=== PATIENT | female | born 1955 | race Caucasian/White ===

== ENCOUNTER → 2017-01-26 | Outpatient (CLI) | payer BC, OTHER ==
--- NOTE | 2017-01-29 13:37 | Diagnostic Imaging Report ---
EXAMINATION: Bilateral screening mammogram with a Computer Aided Detection (CAD) system. INDICATION: Screening. PERSONAL HISTORY: No current complaints stated on the questionnaire. COMPARISON: 01/22/2016. FINDINGS: There is a focal asymmetry in the lateral aspect of the left breast. This appears more prominent compared to the prior exam and is measuring about 1 cm in size. Focal compression views and an ultrasound evaluation are recommended. The background heterogeneously dense parenchyma otherwise in both breasts appears unchanged. IMPRESSION: Focal compression views and an ultrasound evaluation for a lateral left breast focal asymmetry are recommended. ACR BI-RADS Category 0: Incomplete. (Needs additional imaging evaluation). Result letter will be mailed to the patient. Note: At least 10% of breast cancer is not imaged by mammography. Dictated by: Dictated on workstation # [id number]
== END ==
LOC: RAD 09:53
PROVIDERS: ATTEND Internal Medicine
DX: Z12.31 Encounter for screening mammogram for malignant neoplasm of breast (principal)
CPT/HCPCS: 77067

== ENCOUNTER → 2017-02-13 | Outpatient (CLI) | payer OTHER ==
--- NOTE | 2017-02-13 16:09 | Diagnostic Imaging Report ---
EXAMINATION: Left diagnostic mammogram with a Computer Aided Detection (CAD) system. INDICATION: Focal asymmetry in the outer aspect of the left breast. FINDINGS: Focal compression views demonstrate a persistent indeterminate focal asymmetry in the outer aspect of the left breast. It is, however, less prominent on the true lateral projection. IMPRESSION: Indeterminate persistent density along the site of focal asymmetry in the lateral aspect of the left breast. An ultrasound evaluation is pending. ACR BI-RADS Category 0: Incomplete. (Needs additional imaging evaluation). Result letter will be mailed to the patient. Note: At least 10% of breast cancer is not imaged by mammography. Dictated by: Dictated on workstation # [id number]
--- NOTE | 2017-02-13 16:26 | Diagnostic Imaging Report ---
EXAMINATION: Left breast ultrasound. INDICATION: Outer left breast asymmetry. FINDINGS: At the 6 o'clock zone 4 cm from the nipple, there is an intramammary lymph node seen with a maximum dimension of 7 mm and smooth margins with preserved fatty hilum, compatible with benign etiology. This does not correspond with the location of the focal asymmetry seen on mammography. No other lesion is seen in the outer aspect of the left breast or retroareolar region. IMPRESSION: Incidental note of an intramammary benign-appearing lymph node at the 6 o'clock zone. No definite abnormality to explain the focal asymmetry seen in the outer aspect of the left breast on mammography which could be summation artifact of parenchyma. A 6 month left breast mammogram is recommended to ensure stability or resolution. ACR BI-RADS Category 3: Probably benign findings. Result letter will be mailed to the patient. Note: At least 10% of breast cancer is not imaged by mammography. Dictated by: Dictated on workstation # [id number]
== END ==
LOC: RAD 08:13
PROVIDERS: ATTEND Internal Medicine
DX: N64.89 Other specified disorders of breast (principal)
CPT/HCPCS: 76642

== ENCOUNTER → 2017-08-31 | Outpatient (CLI) | payer OTHER ==
--- NOTE | 2017-08-31 13:03 | Diagnostic Imaging Report ---
EXAMINATION: Left breast diagnostic mammogram with tomography evaluation. The current study was also evaluated with a Computer Aided Detection (CAD) system. COMPARISON: 01/24/2017. INDICATION: Asymmetry along the upper aspect of the left MLO view. FINDINGS: The area of asymmetry is again seen with no adverse development and no definite underlying lesion is identified. No definite mass, architectural distortion, or suspicious cluster of calcifications. IMPRESSION: Persistent nonspecific asymmetry with no definite underlying lesion in the upper aspect of the left breast is favored to be related to summation artifact from the background dense parenchyma. A followup study when the patient is due for her bilateral mammogram in January 2018 is recommended. ACR BI-RADS Category 3: Probably benign findings. Result letter will be mailed to the patient. Note: At least 10% of breast cancer is not imaged by mammography. Dictated by: Dictated on workstation # [id number]
== END ==
LOC: RAD 12:16
PROVIDERS: ATTEND Internal Medicine
DX: N64.89 Other specified disorders of breast (principal)

== ENCOUNTER 2018-01-13 13:07 | Emergency (ER) | payer OTHER ==
[~2018-01-13] VITALS: Ht 162.6 cm; Wt 81.6 kg
--- OUTSIDE RECORDS SUMMARY | 2018-01-13 13:12 | XMS REPORT | Continuity of Care Document ---
Author Author [facility] Organization [facility] Address Unknown Phone Unavailable Allergies There is no data. Medications There is no data. Problems Date Dx Coded Attending Type Code Diagnosis Diagnosed By 01/22/2015 CONCHA JARQUIN MD Ot V76.12 01/22/2015 CONCHA JARQUIN MD Ot V76.12 02/09/2015 CONCHA JARQUIN MD Ot V76.12 01/22/2016 Ot V76.12 OTH SCREEN MAMMO-MALIGN NEOPLASM OF JAN 01/22/2016 CONCHA JARQUIN MD Ot V76.12 OTH SCREEN MAMMO-MALIGN NEOPLASM OF JAN 01/22/2016 CONCHA JARQUIN MD Ot V76.12 OTH SCREEN MAMMO-MALIGN NEOPLASM OF JAN 01/23/2016 CONCHA JARQUIN MD Ot Z12.31 ENCNTR SCREEN MAMMOGRAM FOR MALIGNANT NE 01/24/2016 CONCHA JARQUIN MD Ot Z12.31 ENCNTR SCREEN MAMMOGRAM FOR MALIGNANT NE 02/14/2016 CONCHA JARQUIN MD Ot Z12.31 ENCNTR SCREEN MAMMOGRAM FOR MALIGNANT NE 01/21/2017 Ot V76.12 OTH SCREEN MAMMO-MALIGN NEOPLASM OF JAN 01/21/2017 CONCHA JARQUIN MD Ot V76.12 OTH SCREEN MAMMO-MALIGN NEOPLASM OF JAN 01/21/2017 CONCHA JARQUIN MD Ot V76.12 OTH SCREEN MAMMO-MALIGN NEOPLASM OF JAN 01/21/2017 CONCHA JARQUIN MD Ot Z12.31 ENCNTR SCREEN MAMMOGRAM FOR MALIGNANT NE 02/19/2017 CONCHA JARQUIN MD Ot N64.89 OTHER SPECIFIED DISORDERS OF BREAST 02/20/2017 CONCHA JARQUIN MD Ot N64.89 OTHER SPECIFIED DISORDERS OF BREAST 02/20/2017 CONCHA JARQUIN MD Ot N64.89 OTHER SPECIFIED DISORDERS OF BREAST 09/01/2017 CONCHA JARQUIN MD Ot N64.89 OTHER SPECIFIED DISORDERS OF BREAST 09/03/2017 CONCHA JARQUIN MD Ot N64.89 OTHER SPECIFIED DISORDERS OF BREAST Procedures There is no data. Results There is no data. Encounters ACCT No. Visit Date/Time Discharge Status Pt. Type Provider Facility Loc./Unit Complaint [id number] 08/31/2017 12:16:00 08/31/2017 23:59:59 CLS Outpatient CONCHA JARQUIN MD [facility] RAD 6 MO F/U [id number] 02/13/2017 08:13:00 02/13/2017 23:59:59 CLS Outpatient CONCHA JARQUIN MD [facility] RAD ABNORMAL MAMMO [id number] 01/26/2017 09:53:00 01/26/2017 23:59:59 CLS Outpatient CONCHA JARQUIN MD [facility] RAD Z12.31 [id number] 01/22/2016 08:19:00 01/22/2016 23:59:59 CLS Outpatient CONCHA JARQUIN MD [facility] RAD SCREENING [id number] 01/16/2015 10:21:00 01/16/2015 23:59:59 CLS Outpatient CONCHA JARQUIN MD [facility] RAD SCREENING [id number] 01/05/2014 10:17:00 01/05/2014 23:59:59 CLS Outpatient CONCHA JARQUIN MD [facility] RAD SCREENING [id number] 01/13/2018 13:09:00 ACT Emergency PAU ISBELL APRN [facility] ER FINGER LAC--WORK RELATED [id number] 12/31/2012 10:19:00 Document Registration
--- NOTE | 2018-01-13 13:23 | ED Upper Extremity ---
General Chief Complaint: Laceration Stated Complaint: FINGER LAC--WORK RELATED Nursing Triage Note: c/o laceration to proximal right 5th finger. Claims she cut finger on a edge of a metal can. Nursing Sepsis Screen: No Definite Risk Source: patient Exam Limitations: no limitations History of Present Illness Date Seen by Provider: Jan 13, 2018 Time Seen by Provider: 13:22 Initial Comments To ER accompanied by coworker/supervisor nutritional yeast with reports of a laceration to the dorsal aspect of the right fifth finger. 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 She was opening a can of ketchup when her hand slipped and the lid of the can cut her finger. Tetanus is not up-to-date. She has her own workmans comp paperwork with her from [employer] [facility]. Onset: just prior to arrival Severity: moderate Pain/Injury Location: right 5th finger Allergies and Home Medications Patient Home Medication List Home Medication List Reviewed: Yes Constitutional: see HPI EENTM: see HPI Respiratory: no symptoms reported Cardiovascular: no symptoms reported Genitourinary: no symptoms reported Musculoskeletal: no symptoms reported Skin: see HPI Psychiatric/Neurological: No Symptoms Reported Past Histjvq-Bhtoet-Luckgi Hx Patient Social History Recent Foreign Travel: No Contact w/Someone Who Travel: No Recent Infectious Disease Expo: No Physical Exam Vital Signs Vital Signs - First Documented 01/13/18 13:16 Temp 98.1 Pulse 76 B/P (MAP) 140/64 (89) Pulse Ox 98 O2 Delivery Room Air Capillary Refill : Less Than 3 Seconds General Appearance: WD/WN, no apparent distress HEENT: PERRL/EOMI, normal ENT inspection Neck: non-tender, full range of motion Respiratory: no respiratory distress, no accessory muscle use Gastrointestinal: normal bowel sounds, non tender Shoulder: normal inspection, non-tender Elbow/Forearm: normal inspection, non-tender Wrist: Yes normal inspection Hand: Right, laceration (1 cm laceration skin flap to the dorsal aspect of the proximal phalanx right fifth finger. No tendon involvement. This is a superficial skin flap.) Neurologic/Psychiatric: alert, normal mood/affect, oriented x 3 Skin: normal color, warm/dry Procedures/Interventions Wound Location: Upper Extremities Wound Length (cm): 1 Wound's Depth, Shape: superficial Other Closure Supply: Wound Adhesive Progress/Results/Core Measures Vital Signs/I&O 01/13/18 13:16 Temp 98.1 Pulse 76 B/P (MAP) 140/64 (89) Pulse Ox 98 O2 Delivery Room Air Blood Pressure Mean: 89 Departure Impression Primary Impression: Finger laceration Disposition: 01 HOME, SELF-CARE Condition: Stable Departure-Patient Inst. Decision time for Depature: 13:26 Referrals: CONCHA JARQUIN MD (PCP/Family) Primary Care Physician Patient Instructions: Laceration Repair With Glue (DC) Add. Discharge Instructions: . Allow the glue to fall off on its own in about 3-5 days. Keep covered with bandaid for 4 days. All discharge instructions reviewed with patient and/or family. Voiced understanding. PAU ISBELL GERMINATION TESTING MANAGER Jan 13, 2018 13:23
[2018-01-13] MEDS ORDERED: PARO20TA5 (13:24)
[2018-01-13] MEDS ORDERED: ATEN100T (13:24)
[2018-01-13] MEDS ORDERED: VALS1TAB78 (13:24)
[2018-01-13] MEDS ORDERED: TETANUS,DIPTH,PERTUSS P/F (BOOSTRIX) 0.5 ML VIAL IM ONE (13:30)
[2018-01-13 13:35] VITALS: BP 138/64
== END 2018-01-13 13:35 | disposition home or self-care (01) ==
LOC: EDUNIT# 13:07 → ER 13:09
DX: S61.216A Laceration without foreign body of right little finger without damage to nail, initial encounter (principal); Z23 Encounter for immunization; W26.8XXA Contact with other sharp object(s), not elsewhere classified, initial encounter
CPT/HCPCS: 12011; 90471; 90715

== ENCOUNTER 2018-07-23 05:42 | Outpatient (CLI) | payer OTHER ==
[~2018-07-23] VITALS: Ht 162.6 cm; Wt 81.6 kg
[~2018-07-23 05:42] MED LIST: ATEN100T PO; PARO20TA5; VALS1TAB78 PO
[2018-07-23] MEDS ORDERED: PARO10TA3 PO (12:20)
[2018-07-23] MEDS ORDERED: ASPI-586 PO (12:20)
== END 2018-07-23 12:23 | disposition home or self-care (01) ==
LOC: PREOP 05:42
PROVIDERS: ATTEND Surgery
DX: Z01.818 Encounter for other preprocedural examination (principal)

== ENCOUNTER → 2019-01-28 | Outpatient (CLI) | payer OTHER ==
[~2019-01-28] MED LIST changes: +ASPI-586 PO; +PARO10TA3 PO
--- NOTE | 2019-01-28 16:17 | Diagnostic Imaging Report ---
INDICATION: Routine screening. COMPARISON: Prior mammogram from 01/26/2017 and 01/22/2016. EXAMINATION: 2D and 3D bilateral screening mammography was performed CAD. The current study was also evaluated with a Computer Aided Detection (CAD) system. FINDINGS: Both breasts remain heterogeneously dense, limiting the sensitivity of mammography. The parenchymal pattern is stable. No mass or malignant appearing microcalcifications are seen. Axillae are unremarkable. IMPRESSION: No mammographic features suspicious for malignancy are identified. ACR BI-RADS Category 1: Negative. Result letter will be mailed to the patient. Note: At least 10% of breast cancer is not imaged by mammography. Dictated on workstation # [id number]
== END ==
LOC: RAD 09:41
PROVIDERS: ATTEND Internal Medicine
DX: Z12.31 Encounter for screening mammogram for malignant neoplasm of breast (principal)
CPT/HCPCS: 77067

== ENCOUNTER → 2020-03-28 | Outpatient (CLI) | payer BC, OTHER ==
[~2020-03-28] MED LIST changes: -VALS1TAB78 PO; +VALS1TAB79 PO
--- NOTE | 2020-03-28 11:37 | Diagnostic Imaging Report ---
INDICATION: Routine screening. Comparison is made with prior mammogram 01/28/2019 and 01/26/2017. 2-D and 3-D bilateral screening mammography was performed with CAD. Both breasts remain heterogeneously dense, limiting the sensitivity of mammography. Circumscribed nodule in the inferior far posterior left breast is noted and has been seen on prior mammograms. No spiculated mass or malignant appearing microcalcifications are seen. Axillae are unremarkable. IMPRESSION: BI-RADS Category 2 No mammographic features suspicious for malignancy are identified. ACR BI-RADS Category 2: Benign findings. Result letter will be mailed to the patient. Note: At least 10% of breast cancer is not imaged by mammography. Dictated by: Dictated on workstation # [id number]
== END ==
LOC: RAD 09:34
PROVIDERS: ATTEND Internal Medicine
DX: Z12.31 Encounter for screening mammogram for malignant neoplasm of breast (principal)
CPT/HCPCS: 77063; 77067

== ENCOUNTER 2020-12-06 05:37 | Outpatient (CLI) | payer OTHER ==
[~2020-12-06] VITALS: Ht 160 cm; Wt 81.4 kg
[2020-12-06] MEDS ORDERED: PARO20TA5 PO (14:56)
[2020-12-06] MEDS ORDERED: ASPI-999 PO (14:56)
== END 2020-12-06 15:02 | disposition home or self-care (01) ==
LOC: PREOP 05:37 → EDSTATUS 11:00 → PREOP 15:02
PROVIDERS: ATTEND Surgery
DX: Z01.818 Encounter for other preprocedural examination (principal)

== ENCOUNTER 2020-12-13 06:47 | Day surgery (SDC) | payer OTHER ==
--- NOTE | 2020-11-28 18:27 | HISTORY AND PHYSICAL ---
DATE OF SERVICE: DATE OF ADMISSION: 12/13/2020. ATTENDING PRIMARY CARE PHYSICIAN: Faizan Ramos MD HISTORY OF PRESENT ILLNESS: The patient is a 65-year-old female who we have seen before. 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 The recommendation at that time was to proceed with a wide local excision with 2 cm margins as well as possible full thickness skin graft as well as a sentinel node biopsy for staging purposes of the inguinal region. She is otherwise doing well, does not have any shortness of breath or difficulty in breathing and has not experienced any recent inadvertent weight loss. PAST MEDICAL HISTORY: Hypertension, atrial fibrillation. MEDICATIONS: Valsartan/hydrochlorothiazide 320/12.5 mg daily, atenolol 100 mg daily, paroxetine 20 mg daily, aspirin 81 mg daily. SOCIAL HISTORY: Negative smoke, negative alcohol. FAMILY HISTORY: Mother, leukemia. Brother, myocardial infarction, age 48. VITAL SIGNS: Blood pressure 159/80, current weight 179.4 pounds at 5 feet 3 inches. REVIEW OF SYSTEMS: Well-nourished female, in no acute distress. She is not experiencing any shortness of breath or difficulty breathing. No chest pain, palpitations, diaphoresis. No nausea, vomiting. No diarrhea or constipation. No fever, chills. No recent inadvertent weight loss. PHYSICAL EXAMINATION: EXTREMITIES: No lower extremity edema. Negative Homans sign. HEENT: No scleral icterus. NECK: No cervical lymphadenopathy. ABDOMEN: Soft, nontender, nondistended. SKIN: There is a previous healed scar from the previous excision site of the anterior mid left thigh. There is no inguinal lymphadenopathy. ASSESSMENT AND PLAN: A 65-year-old female with a superficial spreading melanoma of the left anterior thigh 2.5 mm in depth. The recommendation is to proceed with a wide 2 cm excisional margin as well as a sentinel node for staging purposes, which we will schedule her for. Job ID: [id number] DocumentID: [id number] Dictated Date: 11/27/2020 16:08:06 E M Assembler Date: 11/27/2020 16:20:52 Dictated By: KWESI IVAN MD
[~2020-12-13] VITALS: Ht 160 cm; Wt 81.4 kg
[2020-12-13] VITALS (11 sets, daily range): BP systolic 117–153; BP diastolic 42–89
[~2020-12-13 06:47] MED LIST changes: +ASPI-999 PO; +PARO20TA5 PO
[2020-12-13] MEDS ORDERED: ceFAZolin 2 GM IV Premixed 50 ML IV ONE (07:00)
[2020-12-13] MEDS ORDERED: proPOfol 200 MG/20 ML (DIPRIVAN) VIAL IV ONE (08:07)
[2020-12-13] MEDS ORDERED: LIDOCAINE PF 2% 5 ML (XYLOCAINE) VIAL ONE (08:07)
[2020-12-13] MEDS ORDERED: ONDANSETRON 4 MG/2 ML (SDV) Z0FRAN ONE (08:07)
[2020-12-13] MEDS ORDERED: MIDAZOLAM 2 MG/2 ML (VERSED) VIAL ONE (08:07)
[2020-12-13] MEDS ORDERED: fentaNYL INJ 100 MCG/2 ML AMP ONE (08:08)
[2020-12-13] MEDS ORDERED: METHYLENE BLUE 0.5% (PROVAYBLUE) 50 mg/10 ml vial IV ONE (08:16)
[2020-12-13] MEDS ORDERED: LIDOCAINE/EPI 1%-1:100,000 (XYLOCAINE) 10 ML ONE (08:16)
--- NOTE | 2020-12-13 08:29 | Diagnostic Imaging Report ---
Lymphoscintigraphy. Indication: Melanoma left thigh. This exam was performed for sentinel node identification. Following aseptic preparation of the skin, 1.03 mCi of filtered sulfur colloid was injected in 4 divided doses about the perimeter of the left thigh melanoma excision site. The imaging of this area did show that there was an area of uptake in the region of the left groin. The skin over the area of uptake was marked. Impression: There has been successful lymphoscintigraphy procedure. Dictated by: Dictated on workstation # [id number]
[2020-12-13] MEDS: LACTATED RINGERS 1,000 ML IV PRN ×2 (08:35→12:07)
--- NOTE | 2020-12-13 09:12 | Discharge Inst-Surgical ---
BRAYDEN ELIAS [facility] Dec 13, 2020 09:12
[2020-12-13] MEDS ORDERED: HYDR-3817 PO (09:13)
[2020-12-13] MEDS ORDERED: morphine INJ 10 MG/ML 1ML (SYR OR VIAL) IVP PRN (09:15)
[2020-12-13] MEDS ORDERED: ONDANSETRON 4 MG/2 ML (SDV) Z0FRAN IVP PRN ×2 (09:15→12:00)
[2020-12-13] MEDS ORDERED: ACETAMINOPHEN 325 MG TABLET PO PRN (09:15)
--- NOTE | 2020-12-13 09:23 | Progress Note-Pre Operative ---
Pre-Operative Progress Note H&P Reviewed The H&P was reviewed, patient examined and no changes noted. Time Seen by Provider: 09:00 Date H&P Reviewed: Dec 13, 2020 Time H&P Reviewed: 09:10 Pre-Operative Diagnosis: excision melanoma left thigh BRAYDEN ELIAS Dec 13, 2020 09:23
[2020-12-13] MEDS ORDERED: HYDROmorphone 2 MG/ML VIAL (DILAUDID) IV ONE (12:00)
[2020-12-13] MEDS ORDERED: morphine INJ 10 MG/ML 1ML (SYR OR VIAL) IVP ONE (12:00)
[2020-12-13] MEDS ORDERED: SEVOFLURANE (ULTANE) 15 ML INHAL SOLN ONE (12:19)
--- NOTE | 2020-12-13 12:21 | Progress Note-Post Operative ---
Post-Operative Progess Note Surgeon (s)/Behavioral Health Tech (s) Surgeon KWESI IVAN MD Behavioral Health Tech: kristie tapia SVP CHIEF MARKETING OFFICER Pre-Operative Diagnosis melanoma left thigh Post-Operative Diagnosis same Procedure & Operative Findings Date of Procedure 12/13/20 Procedure Performed/Findings wide excision melanoma left thigh 7x5cm, left inguinal sentinel node biopsy, subdermal injection, full thickness skin graft from left groin. Anesthesia Type general LMA with local Estimated Blood Loss Estimated blood loss (mL): minimal Specimens/Packing Specimens Removed left inguinal sentinel node, left anterior thigh melanoma. KWESI IVAN MD Dec 13, 2020 12:21
--- NOTE | 2020-12-13 18:01 | OPERATIVE REPORT ---
DATE OF SERVICE: 12/13/2020 ATTENDING PRIMARY CARE PHYSICIAN: Faizan Ramos MD. PREOPERATIVE DIAGNOSIS: Left anterior thigh melanoma with a depth of 2.5 mm. POSTOPERATIVE DIAGNOSIS: Left anterior thigh melanoma with a depth of 2.5 mm. PROCEDURES PERFORMED: Wide excision melanoma, left anterior thigh 7 x 5 cm, subdermal injection, sentinel lymph node biopsy from the left inguinal region and full thickness skin graft taken from the left groin. SURGEON: Kwesi Ivan MD. SENIOR SUPPORT ENGINEER: Bethany Azul APRN. ANESTHESIA: General laryngeal mask airway with local. ESTIMATED BLOOD LOSS: Minimal. FINDINGS: Story node count 1683 with a background 12 consistent with sentinel node. DISPOSITION: The patient tolerated the procedure well. INDICATIONS FOR PROCEDURE: The patient is a 65-year-old female, who we had seen before in the past. 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 The recommendation was to proceed with a wide local excision with 2 cm margins as well as a full thickness skin graft to the defect. Also, a sentinel node biopsy for staging purposes of the lymph node basin of the inguinal region. She is otherwise doing well, does not report any shortness of breath or difficulty in breathing as well as no recent inadvertent weight loss. DESCRIPTION OF PROCEDURE: The patient was brought to the operating room and laid supine on the table. After adequate IV pain and sedative medications and general laryngeal mask airway intubation, the left lower extremity and lower abdomen were prepped and draped in a standard surgical fashion. Before this, we proceeded with subdermal injection of methylene blue concentrically around the previous excision site of the melanoma of the anterior left thigh. We first proceeded with excision of the sentinel node using the nuclear counter. Also, before the procedure, the patient underwent lymphoscintigraphy by nuclear medicine. An area was measured out along what excision margins were going to be at 7 x 5 cm placed along the left groin. Skin incision was made using a 15 blade and we then proceeded with dissection of the subcutaneous tissue as well as the fascia. The sentinel node was then identified by the methylene blue dye as well as the nuclear counter at 1683 and after excision of the sentinel node using electrocautery, the background was 12. This was consistent with a sentinel node. This was sent to pathology for permanent. The skin graft was then excised along our markings using a 15 blade. Good hemostasis was observed. Superior and inferior skin flaps were then created using electrocautery and then the subcutaneous tissue was then reapproximated using 3-0 Vicryl interrupted sutures. The subcutaneous layer was then placed using a 3-0 Vicryl suture and the skin was closed using 4-0 Monocryl running subcuticular suture. Wound was then cleaned and covered with Dermabond. We then proceeded with excision of the melanoma site, measured out to be 7 x 5 cm in size using a 15 blade to the level of the subcutaneous fat. Good hemostasis was achieved using electrocautery. We then proceeded to place a skin graft using multiple 4-0 Prolene interrupted sutures. Good hemostasis was observed. A nonstick dressing was then placed onto the graft followed by 4 x 4 gauze followed by Kerlix wrap followed by Coban. The patient tolerated the procedure well. We will await the biopsy results and we will instruct her to keep both incision sites clean and dry and to apply gauze dressing on a daily basis starting two days from now. Job ID: [id number] DocumentID: [id number] Dictated Date: 12/13/2020 12:34:41 News Operations Manager Date: 12/13/2020 18:00:39 Dictated By: KWESI IVAN MD [facility]
== END 2020-12-13 14:30 ==
LOC: SDC 06:47
PROVIDERS: ATTEND Surgery
DX: C43.72 Malignant melanoma of left lower limb, including hip (principal); I10 Essential (primary) hypertension; I48.91 Unspecified atrial fibrillation; K21.9 Gastro-esophageal reflux disease without esophagitis; F41.9 Anxiety disorder, unspecified; Z79.899 Other long term (current) drug therapy; Z79.82 Long term (current) use of aspirin
CPT/HCPCS: 11606; 15220; 38505; 78195; 87081; 88305; 88307; 88344; A9541

== ENCOUNTER → 2021-04-11 | Outpatient (CLI) | payer OTHER ==
[~2021-04-11] MED LIST changes: +HYDR-3817 PO
[2021-04-11 10:42] LABS: ABSOLUTE RETIC # 104 10e9/uL (24-90); BASOPHILS % (AUTO) 1 % (0-10); EOSINOPHILS # (AUTO) 0.1 10^3/uL (0.0-0.3); EOSINOPHILS % (AUTO) 2 % (0-10); HEMATOCRIT 38 % (35-52); HEMOGLOBIN 12.2 g/dL (11.5-16.0); LYMPHOCYTES % (AUTO) 31 % (12-44); MEAN CORPUSCULAR HEMOGLOBIN 30 pg (25-34); MEAN CORPUSCULAR HGB CONC 32 g/dL (32-36); MEAN CORPUSCULAR VOLUME 93 fL (80-99); MEAN PLATELET VOLUME 12.9 fL (9.0-12.2); MONOCYTES # (AUTO) 0.7 10^3/uL (0.0-1.0); MONOCYTES % (AUTO) 11 % (0-12); NEUTROPHILS # (AUTO) 3.6 10^3/uL (1.8-7.8); NEUTROPHILS % (AUTO) 56 % (42-75); PLATELET COUNT 247 10^3/uL (130-400); RETICULOCYTE % 2.55 % (0.50-2.40); WHITE BLOOD COUNT 6.5 10^3/uL (4.3-11.0)
[2021-04-11 11:19] LABS: BAND NEUTROPHILS 0 %; BASOPHILS % (MANUAL) 1 %; EOSINOPHILS % (MANUAL) 3 %; LYMPHOCYTES % (MANUAL) 19 %; MONOCYTES % (MANUAL) 9 %; NEUTROPHILS % (MANUAL) 68 %; RBC MORPH NORMAL
--- NOTE | 2021-04-12 10:15 | Diagnostic Imaging Report ---
Indication: Digital screening with CAD. Compared: 03/2020, 01/2019 and 01/2017. Findings: There are scattered fibroglandular densities in the breast with no mass, spiculated lesion, architectural distortion, suspicious calcifications or adverse interval changes. Impression: Stable negative mammogram BI-RADS Category 1 ACR BI-RADS Category 1: Negative. Result letter will be mailed to the patient. Note: At least 10% of breast cancer is not imaged by mammography. Dictated by: Dictated on workstation # [id number]
== END ==
LOC: RAD 10:14
PROVIDERS: ATTEND Internal Medicine
DX: Z12.31 Encounter for screening mammogram for malignant neoplasm of breast (principal)
CPT/HCPCS: 36415; 77063; 77067; 85007; 85027; 85045; 85055

== ENCOUNTER → 2022-05-05 | Outpatient (CLI) | payer OTHER ==
--- NOTE | 2022-05-05 13:19 | Diagnostic Imaging Report ---
INDICATION: Routine screening. COMPARISON: 04/11/2021 and 03/28/2020. TECHNIQUE: 2D and 3D bilateral screening mammography was performed with CAD. FINDINGS: Scattered fibroglandular densities are identified bilaterally. No mass or malignant-appearing microcalcifications are seen. The axillae are unremarkable. IMPRESSION: No mammographic features suspicious for malignancy are identified. ACR BI-RADS Category 1: Negative. Result letter will be mailed to the patient. Note: At least 10% of breast cancer is not imaged by mammography. Dictated by: Dictated on workstation # [id number]
== END ==
LOC: RAD 10:00
PROVIDERS: ATTEND Internal Medicine
DX: Z12.31 Encounter for screening mammogram for malignant neoplasm of breast (principal)
CPT/HCPCS: 77063; 77067

== ENCOUNTER → 2022-06-25 | Outpatient (CLI) | payer MEDICARE, OTHER | LOC: CARD 09:18 | PROVIDERS: ATTEND Internal Medicine Cardiovascular Disease | DX: I11.9 Hypertensive heart disease without heart failure (principal); I25.10 Atherosclerotic heart disease of native coronary artery without angina pectoris | CPT/HCPCS: 93306 ==

== ENCOUNTER → 2022-07-16 | Outpatient (CLI) | payer MEDICARE, OTHER ==
[~2022-07-16] MED LIST changes: +CATHETER FLUSH 10 ML SYR IVP PRN
[2022-07-16 10:49] VITALS: BP 178/108
--- NOTE | 2022-07-16 10:49 | Cardiology Stress Test Report ---
Stress Test Report Date of Procedure/Referring: Date of Procedure: Jul 16, 2022 PCP Concha Jarquin MD Admitting Physician Admitting Physician: Attending Physician: Av Patel MD Indications: HTN Baseline Heart Rate: 80 Baseline Blood Pressure: Blood Pressure Systolic: 178 Blood Pressure Diastolic: 108 Baseline EKG: Baseline EKG: NSR Summary: After explaining the procedure and details to the patient, she signed the consent and was brought to the stress nuclear laboratory. Patient exercised on standard Aaron protocol, EKG, heart rate and blood pressure were monitored continuously, resting and stress doses of radio tracer were injected, imaging was acquired and reviewed in the short axis, horizontal long axis and vertical long axis views Patient was unable to exercise beyond 1 minute on standard Aaron protocol, it was noted that she reached her target heart rate with peak heart rate 141, 90% of maximal expected heart rate. After stopping the treadmill patient was injected with a stress dose then she started walking again at the slow rate. No EKG changes were noted. The images were acquired and reviewed. TID: 1.09 SSS: 3 SDS: 3 EF: 84 Conclusion: 1. Poor exercise tolerance for a total of 1 minute on standard Aaron protocol, 2.3 METS achieving 90% of maximum expected heart rate 2. Baseline hypertension with severe hypertensive response to exercise with peak blood pressure 213/89 return to baseline during recovery 3. Nondiagnostic EKG changes with exercise return to baseline during recovery 4. No ischemia or infarction noted on SPECT images 5. Normal left ventricular size, ejection fraction 84% Copy Copies To 1: CONCHA JARQUIN MD, BASHAR J MD Jul 16, 2022 10:49
== END ==
LOC: CARD 07:51
PROVIDERS: ATTEND Internal Medicine Cardiovascular Disease
DX: I10 Essential (primary) hypertension (principal); I25.10 Atherosclerotic heart disease of native coronary artery without angina pectoris
CPT/HCPCS: 78452; 93017; A9502

== ENCOUNTER → 2023-05-27 | Outpatient (CLI) | payer MEDICARE, OTHER ==
[~2023-05-27] MED LIST changes: -CATHETER FLUSH 10 ML SYR IVP PRN
--- NOTE | 2023-05-27 11:09 | Diagnostic Imaging Report ---
INDICATION: Routine screening. COMPARISON: 05/05/2022 and 04/11/2021. TECHNIQUE: 2D and 3D bilateral screening mammography was performed with CAD. FINDINGS: Scattered fibroglandular densities are identified bilaterally. A spiculated density has developed in the upper and outer aspect of the left breast. Additional views would be recommended. The right breast is unremarkable. No malignant-appearing microcalcifications are identified. The axillae are unremarkable. IMPRESSION: Spiculated density in the upper outer left breast. Further evaluation with diagnostic mammogram and ultrasound would be recommended. ACR BI-RADS Category 0: Incomplete. (Needs additional imaging evaluation). Result letter will be mailed to the patient. Note: At least 10% of breast cancer is not imaged by mammography. Dictated by: Dictated on workstation # [id number]
== END ==
LOC: RAD 09:50
PROVIDERS: ATTEND Internal Medicine
DX: Z12.31 Encounter for screening mammogram for malignant neoplasm of breast (principal); N63.21 Unspecified lump in the left breast, upper outer quadrant
CPT/HCPCS: 77063; 77067

== ENCOUNTER → 2023-06-10 | Outpatient (CLI) | payer MEDICARE, OTHER ==
--- NOTE | 2023-06-10 13:42 | Diagnostic Imaging Report ---
Indication: Left breast density. Study is performed for further evaluation. Correlation is made with diagnostic mammogram earlier the same day and screening mammogram from 05/27/2023. Sonographic interrogation of the upper outer left breast was performed. There is a irregular hypoechoic mass at the 2:00 location, 5-6 cm from the nipple measuring 10 x 8 x 6 mm. This has ill-defined margins. This likely accounts for the mammographic density. This does show some vascularity along the margins. No other masses are seen. There is posterior acoustic shadowing. IMPRESSION: BI-RADS Category 4 Irregular mass 2:00 location left breast corresponding to the mammographic density. This is concerning for breast malignancy. Tissue sampling is recommended. This would be amenable to ultrasound-guided core biopsy. ACR BI-RADS Category 4: Suspicious abnormality. Dictated by: Dictated on workstation # [id number]
--- NOTE | 2023-06-10 13:59 | Diagnostic Imaging Report ---
Indication: Left breast density. Patient presents for additional views. Correlation is made with screening study from 05/27/2023. Unilateral left 2-D and 3-D diagnostic mammography was performed. This includes spot compression CC, exaggerated CC, spot compression ML as well as conventional 90 degrees lateral views. CAD. The current study was also evaluated with a Computer Aided Detection (CAD) system. There is a persistent spiculated density in the upper outer left breast approximately 7 to 8 cm from the nipple, concerning for a breast malignancy. No malignant-appearing microcalcifications are seen. IMPRESSION: BI-RADS Category 0 Persistent spiculated density upper outer left breast, as described. Further evaluation with ultrasound is recommended and will be performed today. ACR BI-RADS Category 0: Incomplete. (Needs additional imaging evaluation). Result letter will be mailed to the patient. Note: At least 10% of breast cancer is not imaged by mammography. Dictated by: Dictated on workstation # [id number]
== END ==
LOC: RAD 12:19
PROVIDERS: ATTEND Internal Medicine
DX: N63.21 Unspecified lump in the left breast, upper outer quadrant (principal)
CPT/HCPCS: 76642; 77065; G0279

== ENCOUNTER 2023-07-09 05:33 | Outpatient (CLI) | payer MEDICARE, OTHER ==
[~2023-07-09] VITALS: Ht 160 cm; Wt 88.6 kg
[2023-07-09] MEDS ORDERED: ATOR10TA66 PO (10:10)
== END 2023-07-09 10:34 | disposition home or self-care (01) ==
LOC: PREOP 05:33
PROVIDERS: ATTEND Surgery
DX: Z01.818 Encounter for other preprocedural examination (principal)

== ENCOUNTER → 2023-07-23 | Outpatient (CLI) | payer MEDICARE, OTHER ==
[2023-07-23] VITALS (11 sets, daily range): BP systolic 129–161; BP diastolic 52–88
[~2023-07-23] VITALS: Ht 160 cm; Wt 88.6 kg
[~2023-07-23] MED LIST changes: +ACETAMINOPHEN 325 MG TABLET PO PRN; +ATOR10TA66 PO; +LACTATED RINGERS 1,000 ML 1,000 ML IV PRN; +LIDOCAINE 1% INJ 10 ML VIAL INJ ONE; +LIDOCAINE 2% w/EPI 1:100,000 20 ML VIAL ONE; +LIDOCAINE PF 2% 5 ML VIAL ONE; +NS (IVPB) 50 ML 50 ML ONE; +ONDANSETRON INJECTION 4 MG/2 ML (SDV) IVP PRN; +ONDANSETRON INJECTION 4 MG/2 ML (SDV) ONE; +PROMETHAZINE INJ 25 MG/ML VIAL IVP ONE; +PROMETHAZINE INJ 25 MG/ML VIAL ONE; +SEVOFLURANE (ULTANE) 15 ML INHAL SOLN ONE; +ceFAZolin INJECTION 2,000 MG ONE; +ceFAZolin INJECTION 2,000 MG in NS (IVPB) 50 ML 50 ML IV ONE; +fentaNYL INJECTION 100 MCG/2 ML VIAL IVP ONE; +morphine INJ 10 MG/ML 1ML (SYR OR VIAL) IVP PRN; +oxyCODONE/ACETAMINOPHEN 5/325MG TABLET PO PRN
--- NOTE | 2023-07-23 10:11 | Diagnostic Imaging Report ---
Indication: Left breast carcinoma. Patient was administered a total of 1.1 mCi technetium 99m Lymphoseek in 4 separate aliquots and injected in the left breast periareolar region. Imaging was then performed. Imaging does show some migration of activity towards the left axilla. This was marked on the patient's skin. IMPRESSION: Left breast lymphoscintigraphy, as described. Dictated by: Dictated on workstation # [id number]
[2023-07-23] MEDS: LIDOCAINE 2% w/EPI 1:100,000 20 ML VIAL INJ ONE (13:15)
--- NOTE | 2023-07-23 13:57 | Progress Note-Pre Operative ---
Pre-Operative Progress Note Date of Available H&P: Jul 23, 2023 Date H&P Reviewed: Jul 23, 2023 Time H&P Reviewed: 10:30 History & Physical: No changes noted Pre-Operative Diagnosis: left breast invasive ductal cancer KWESI IVAN MD Jul 23, 2023 13:57
--- NOTE | 2023-07-23 14:03 | Progress Note-Post Operative ---
Post-Operative Progess Note Surgeon (s)/Director Of Channel Marketing (s) Surgeon KWESI IVAN MD Director Of Channel Marketing: kristie tapia [employer] Pre-Operative Diagnosis left breast invasive ductal cancer Post-Operative Diagnosis same Procedure & Operative Findings Date of Procedure 07/23/23 Procedure Performed/Findings left breast needle localization biopsy, left deep axillary lymph node sentinel node biopsy. Anesthesia Type general LMA Estimated Blood Loss Estimated blood loss (mL): minimal Specimens/Packing Specimens Removed left breast mass. left axillary sentinel node. KWESI IVAN MD Jul 23, 2023 14:03
--- NOTE | 2023-07-23 14:04 | Discharge Inst-Surgical ---
D/C Lap Instructions-MARZENA New, Converted, or Re-Newed RX: RX on Chart Follow Up Appt in 2 weeks Activity as tolerated No driving for 24 hours No driving while on pain medications Incentive Spirometry use every 2 hours while awake Regular Diet Symptoms to Report: Fever over 101 degree F, Nausea/Vomiting Infection Signs and Symptoms to report: Increased redness, Foul odor of wound, Increased drainage Bathing instructions: May shower Operative Area Clean/Dry; Keep incision clean/dry If any problems/questions: Contact your physician or go to Emergency Room KWESI IVAN MD Jul 23, 2023 14:04
--- NOTE | 2023-07-23 14:42 | Anesthesia-General Post-Op ---
General Patient Condition Mental Status/LOC: Same as Preop Cardiovascular: Satisfactory Nausea/Vomiting: Absent Respiratory: Satisfactory Pain: Controlled Complications: Absent Post Op Complications Complications None Follow Up Care/Instructions Patient Instructions None needed. Anesthesia/Patient Condition Patient Condition Patient is doing well, no complaints, stable vital signs, no apparent adverse anesthesia problems. No complications reported per nursing. ROGELIO PRIETO CRNA Jul 23, 2023 14:42
[2023-07-23] MEDS: ONDANSETRON INJECTION 4 MG/2 ML (SDV) IVP PRN ×2 (14:58→15:27)
--- NOTE | 2023-07-23 15:07 | Diagnostic Imaging Report ---
INDICATION: Left breast carcinoma. PROCEDURE: The patient presents for an ultrasound-guided hook-wire localization. The patient was brought to the sonographic suite, placed on the table in the supine position. Ultrasound imaging of the left breast was performed to evaluate appropriate entry site. The left breast was then prepped and draped in the usual sterile fashion. A small amount of 1% lidocaine was utilized for local anesthesia. Localization needle was then advanced from a lateral approach into the left breast and placed through the hypoechoic lesion at the 2:00 location of the left breast. Hookwire was then deployed and the needle was removed. Hook-wire was affixed to the patient's skin. The patient tolerated the procedure well and was sent for post procedure mammogram on dedicated mammographic equipment. IMPRESSION: Successful ultrasound-guided hook-wire localization of the hypoechoic mass at the 2:00 location of the left breast. Dictated by: Dictated on workstation # [id number]
--- NOTE | 2023-07-23 15:33 | Diagnostic Imaging Report ---
Indication: Left breast carcinoma. Patient is status post ultrasound-guided left breast hook wire localization. Unilateral left 2-D CC, exaggerated CC as well as mediolateral views of the left breast were performed after the patient underwent ultrasound-guided left breast hook wire localization. The hookwire is located adjacent to the marker clip in the upper and outer aspect of the left breast. IMPRESSION: Left breast hook wire localization, as described. Dictated by: Dictated on workstation # [id number]
--- NOTE | 2023-07-23 15:52 | Diagnostic Imaging Report ---
INDICATION: Left breast carcinoma. Patient is status post lumpectomy. Specimen radiograph was submitted. The hookwire and biopsy marker clip are located within the specimen. IMPRESSION: Specimen radiograph, as described. Dictated by: Dictated on workstation # [id number]
--- NOTE | 2023-07-23 21:26 | OPERATIVE REPORT ---
DATE OF SERVICE: 07/23/2023 ATTENDING PRIMARY CARE PHYSICIAN: Dr. Faizan Ramos. PREOPERATIVE DIAGNOSIS: Left breast invasive ductal carcinoma. POSTOPERATIVE DIAGNOSIS: Left breast invasive ductal carcinoma. PROCEDURE: Left breast needle localization breast, excisional breast biopsy, left deep axillary sentinel lymph node biopsy, subdermal injection of isosulfan blue. SURGEON: Kwesi Ivan MD PUBLICATIONS EDITOR: Maykel Mooney APRN ANESTHESIA: General laryngeal mask airway. ESTIMATED BLOOD LOSS: Minimal. FINDINGS: Left breast invasive ductal carcinoma. DISPOSITION: The patient tolerated the procedure well. INDICATIONS: The patient is a 68-year-old female who had a regular screening mammogram done in 05/2023 and a spiculated density along the upper outer quadrant of the left breast was identified. She then underwent ultrasound-guided biopsy where a 10 x 8 mm lesion was identified and this was biopsied, sent to pathology and consistent with an invasive ductal carcinoma, ER SC positive, HER-2 Nicolette negative and Ki-67 index of 35%. The patient has been getting yearly mammograms since the age 42. She does not report any breast masses, dimpling, or any abnormal nipple discharge. She states that she started menses at age 14 and menopause at around age 18 and did use oral contraceptive pills for approximately 20 years. She has been twice and given 2 live births and did not breastfeed. She also does not report any family history of colon cancer. DESCRIPTION OF PROCEDURE: The patient was brought to the operating room, laid supine on the table. After adequate IV pain and sedative medications and general laryngeal mask airway intubation, the chest and left upper extremity were prepped and draped in standard surgical fashion. A 2% lidocaine with epinephrine was then used to anesthetize the overlying skin in the left axilla. Using the nuclear counter, we then proceeded with a curvilinear axillary skin incision using a #15 blade. Subcutaneous tissue and the clavipectoral fascia were then opened using electrocautery. We then proceeded with blunt dissection until a positive lymph node by blue coloration as well as the nuclear counter was identified. This was then fully excised using electrocautery. The sentinel node count was [id number] with a background count of 1875 at approximately 10% and consistent with the sentinel lymph node. The sentinel node was then sent for permanent pathology. Subcutaneous tissue was then reapproximated using 3-0 Vicryl interrupted suture. Skin was closed using 4-0 Monocryl running subcuticular suture. We then proceeded with the needle localization breast excisional biopsy. The skin in the left upper abdomen was anesthetized using 2% lidocaine with epinephrine. A curvilinear skin incision was then made using a #15 blade. The subcutaneous tissue was then opened using electrocautery. We then proceeded to use Kasey clamps around the needle and in a conical wide circumferential excision around the entire needle. We used Kasey clamps and electrocautery with visualization of good hemostasis. The specimen was then sent to pathology with preliminary pathology report being negative for margins. Good hemostasis was achieved using electrocautery and the subcutaneous tissue was then reapproximated using 3-0 Vicryl interrupted sutures. Skin was closed using 4-0 Monocryl running subcuticular suture. Wound was then cleaned and covered with Dermabond. The patient tolerated the procedure well. We will start IV normal pain medication as well as a clear liquid diet. Once tolerating clears, has good pain control with oral pain medications, ambulating well, we will discharge her home. She will be instructed to wear some type of supportive garment on her chest for the next 2 weeks to prevent seroma formation as well. We will also have her follow up in 2 weeks to discuss the pathology results. Job ID: [id number] DocumentID: [id number] Dictated Date: 07/23/2023 14:20:39 Director Emergency Services Date: 07/23/2023 21:24:00 Dictated By: KWESI IVAN MD [facility]
== END ==
LOC: CARD 10:37
PROVIDERS: ATTEND Surgery
DX: C50.412 Malignant neoplasm of upper-outer quadrant of left female breast (principal)
CPT/HCPCS: 19125; 19285; 38525; 38900; 76098; 77065; 78195; 88307; 88342; A9520; G0279

== ENCOUNTER → 2023-09-01 | Outpatient (CLI) | payer MEDICARE, OTHER ==
[~2023-09-01] VITALS: Ht 160 cm; Wt 85.3 kg
[~2023-09-01] MED LIST changes: -ACETAMINOPHEN 325 MG TABLET PO PRN; -LACTATED RINGERS 1,000 ML 1,000 ML IV PRN; -LIDOCAINE 1% INJ 10 ML VIAL INJ ONE; -LIDOCAINE 2% w/EPI 1:100,000 20 ML VIAL ONE; -LIDOCAINE PF 2% 5 ML VIAL ONE; -NS (IVPB) 50 ML 50 ML ONE; -ONDANSETRON INJECTION 4 MG/2 ML (SDV) IVP PRN; -ONDANSETRON INJECTION 4 MG/2 ML (SDV) ONE; -PROMETHAZINE INJ 25 MG/ML VIAL IVP ONE; -PROMETHAZINE INJ 25 MG/ML VIAL ONE; -SEVOFLURANE (ULTANE) 15 ML INHAL SOLN ONE; -ceFAZolin INJECTION 2,000 MG ONE; -ceFAZolin INJECTION 2,000 MG in NS (IVPB) 50 ML 50 ML IV ONE; -fentaNYL INJECTION 100 MCG/2 ML VIAL IVP ONE; -morphine INJ 10 MG/ML 1ML (SYR OR VIAL) IVP PRN; -oxyCODONE/ACETAMINOPHEN 5/325MG TABLET PO PRN
== END | disposition home or self-care (01) ==
LOC: PREOP 11:44
PROVIDERS: ATTEND Surgery
DX: Z01.818 Encounter for other preprocedural examination (principal)